=== PATIENT | male | born 1935 | race Caucasian/White ===

== ENCOUNTER 2021-06-05 12:20 | Emergency (ER) | payer MEDICARE, OTHER ==
--- NOTE | 2021-06-05 12:27 | ERPHSYRPT ---
- History of Present Illness Time Seen by Provider: 06/05/21 12:22 Source: patient Exam Limitations: clinical condition Physician History: This is an 85-year-old white male who had a witnessed arrest approximately 10 minutes before EMS arrived. At that time the patient was asystole CPR was started after a brief period of PEA, patient had the Alexx compression device and CPR was started with several rounds of epinephrine. According to EMS service, CPR started at 1120. Patient arrives to our facility at approximately 1215. We can denude the Alexx compression device. Patient arrives intubated orotracheally, pupils are fixed and dilated, there are no spontaneous breath sounds and no spontaneous heart tones. The cardiac cath rn shows asystole despite CPR including Alexx compression device and medications of epinephrine. Code arrest was called at 1219 which is approximately 1 hour and 9 minutes after patient had the witnessed cardiac arrest. There are no family members here at this time. There is a report from the EMS that throughout the weekend the eric spicer has had several syncopal episodes and patient refused medical evaluation and intervention. Timing/Duration: today Activities at Onset: none Severity of Pain-Max: none Severity of Pain-Current: none Modifying Factors: Improves With: nothing Associated Symptoms: other (Cardiac arrest) Travel Risk - International Travel Have you traveled outside of the country in past 3 weeks: No - Coronavirus Screening Are you exhibiting any of the following symptoms?: No Close contact with a COVID-19 positive Pt in past 14-21 Days: No - Review of Systems Constitutional: No Symptoms Eyes: No Symptoms Ears, Nose, & Throat: No Symptoms Respiratory: No Symptoms Cardiac: Syncope (Over the weekend prior to patient arrival) Abdominal/Gastrointestinal: No Symptoms Genitourinary Symptoms: No Symptoms Musculoskeletal: No Symptoms Skin: No Symptoms Neurological: Other (Unresponsive and orotracheally intubated) Psychological: No Symptoms Endocrine: No Symptoms Hematologic/Lymphatic: No Symptoms Immunological/Allergic: No Symptoms All Other Systems: Reviewed and Negative - Past Medical History Pertinent Past Medical History: Yes - Past Surgical History Past Surgical History: Yes - Physical Exam General Appearance: other (Unresponsive and endotracheally intubated) Eye Exam: other (Pupils fixed and dilated) Ears, Nose, Throat Exam: normal ENT inspection, dry mucous membranes, other (Tracheally intubated) Neck Exam: normal inspection Respiratory Exam: other (No spontaneous breath sounds) Cardiovascular Exam: other (No pulse and no spontaneous heart tones) Gastrointestinal/Abdomen Exam: soft Extremity Exam: other (All extremities cool and pale) Neurologic Exam: other (Unresponsive and endotracheal intubated) Skin Exam: mottled, pale - Course Nursing assessment & vital signs reviewed: Yes - Progress Progress: unchanged - Departure Departure Disposition: Clinical Impression: Cardiac arrest Condition: Critical Care Time: No Referrals: ZAY ARGUETA [Primary Care Provider] - Follow up/PCP as directed
[2021-06-05 12:31] VITALS: PULSE 0
== END 2021-06-05 15:16 | disposition expired ==
LOC: ED 12:20
DX: I46.9 Cardiac arrest, cause unspecified (principal)
CPT/HCPCS: 99283